=== PATIENT | female | born 1990 | race Caucasian/White ===

== ENCOUNTER 2021-10-13 19:58 | Emergency (ER) | payer BC | END 2021-10-13 22:15 | disposition home or self-care (01) | LOC: ER1 19:58 | DX: S01.81XA Laceration without foreign body of other part of head, initial encounter (principal); Z98.84 Bariatric surgery status; Z88.2 Allergy status to sulfonamides; W21.03XA Struck by baseball, initial encounter; Z23 Encounter for immunization | CPT/HCPCS: 12011; 90471; 90715; 99282 ==